=== PATIENT | female | born 1990 | race Hispanic/Latino ===

== ENCOUNTER 2022-01-29 08:23 | Outpatient (CLI) | payer OTHER | END 2022-01-29 08:24 | disposition home or self-care (01) | LOC: CSHLAB 08:23 | PROVIDERS: ATTEND Obstetrics & Gynecology | DX: Z01.812 Encounter for preprocedural laboratory examination (principal); Z20.822 Contact with and (suspected) exposure to COVID-19; D25.9 Leiomyoma of uterus, unspecified | CPT/HCPCS: 84703; 85027; 86850; 86900; 86901; U0003; U0005 ==

== ENCOUNTER 2022-02-03 07:55 | Day surgery (SDC) | payer OTHER ==
[2022-01-29 09:09] LABS: BHCG - Serum Negative (NEGATIVE); Pregs Control Background? CLEAR/WHITE (CLR/WHITE); Pregs Control Bar Appear? YES (CONTROL BAR)
[2022-01-29 09:16] LABS: Platelet Count 394 10x3/uL (150-450)
[2022-01-29 09:17] LABS: Hemoglobin 6.9 g/dL (12.0-15.5); Mean Corpuscular HGB CONC 25.7 g/dL (32.0-36.0); Mean Corpuscular Volume 62.3 fl (81.6-98.3); Mean Platelet Volume 9.7 fl (7.4-10.4); RBC Distribution Width 22.3 % (11.5-14.5); Red Blood Cell (RBC) Count 4.32 10x6/uL (3.90-5.03); White Blood Cell (WBC) Count 7.9 10x3/uL (3.5-10.5)
[2022-02-02 09:41] VITALS: BMI 38.2
[~2022-02-03 07:55] MED LIST: Bupivacaine PF 0.5% 30 ML VIAL ONE; EPINEPHrine 1 MG/ML AMP ONE
[2022-02-03] MEDS ORDERED: Gabapentin 300 MG CAP ONE (08:16)
[2022-02-03] MEDS ORDERED: CeleCOXIB 100 MG CAP ONE (08:16)
[2022-02-03] MEDS ORDERED: Famotidine/PF 20 mg/2ml Vial ONE (08:17)
[2022-02-03] MEDS ORDERED: Lidocaine 1% MPF 2 ML VIAL ONE (08:30)
[2022-02-03] MEDS ORDERED: Fentanyl 250 MCG/5 ML VIAL ONE (09:08)
[2022-02-03] MEDS ORDERED: Rocuronium Bromide 10 MG/ML (10ML VIAL) ONE (09:08)
[2022-02-03] MEDS ORDERED: PROPOFOL 20 ML ONE (09:08)
[2022-02-03] MEDS ORDERED: Lidocaine 1% PF 5 ML VIAL ONE (09:08)
[2022-02-03] MEDS ORDERED: ceFAZolin 2 GM/Dextrose 50 ML IVPB ONE (09:24)
[2022-02-03] MEDS ORDERED: Dexmedetomidine 200 MCG/2 ML VIAL ONE (09:25)
[2022-02-03] MEDS ORDERED: Dexamethasone 4 mg/ml Vial ONE (09:41)
[2022-02-03] MEDS ORDERED: Ondansetron PF 4 MG/2 ML Vial ONE ×2 (09:41→11:07)
[2022-02-03] MEDS ORDERED: Dexamethasone 20 MG/5 ML VIAL ONE (09:58)
[2022-02-03] MEDS ORDERED: Glycopyrrolate 0.2 MG/ML 5 ML SYRINGE ONE (10:04)
[2022-02-03] MEDS ORDERED: Fentanyl 100 MCG/2 ML VIAL ONE (12:03)
== END 2022-02-03 14:30 | disposition home or self-care (01) ==
LOC: CSHSDC 07:55
PROVIDERS: ATTEND Obstetrics & Gynecology
PROC: 0UT74ZZ Resection of Bilateral Fallopian Tubes, Percutaneous Endoscopic Approach (ICD-10-PCS; principal; 2022-02-03)
PROC: 0UT94ZZ Resection of Uterus, Percutaneous Endoscopic Approach (ICD-10-PCS; principal; 2022-02-03)
DX: D25.0 Submucous leiomyoma of uterus (principal); D50.0 Iron deficiency anemia secondary to blood loss (chronic); N72 Inflammatory disease of cervix uteri; Z86.16 Personal history of COVID-19
CPT/HCPCS: 84703; 85027; 86850; 86900; 86901; 88307; C1776; J0171; J0690; J1100; J2405; J2704; J3010; S0020; S0028; U0003; U0005